=== PATIENT | male | born 1990 | race American Indian/Alaskan Native ===

== ENCOUNTER 2020-02-24 16:05 | Emergency (ER) | payer MEDICAID ==
[~2020-02-24] VITALS: Ht 175.3 cm; Wt 77.1 kg
[2020-02-24 16:11] VITALS: BP 129/71
[2020-02-24 17:34] LABS: APPEARANCE,URINE CLEAR (CLEAR); BILIRUBIN,URINE NEGATIVE (NEGATIVE); BLOOD, URINE NEGATIVE (NEGATIVE); COLOR,URINE YELLOW (YELLOW); LEUKOCYTE ESTERASE ,URINE NEGATIVE (NEGATIVE); NITRITE, URINE NEGATIVE (NEGATIVE); UGLUCOSE NEGATIVE (NEGATIVE)
[2020-02-24 17:58] VITALS: BP 139/76
== END 2020-02-24 17:58 | disposition home or self-care (01) ==
LOC: MED 16:05
DX: N50.812 Left testicular pain (principal)
CPT/HCPCS: 76870; 81003; 99284; Q0092